=== PATIENT | male | born 1985 | race Caucasian/White ===

== ENCOUNTER 2020-02-18 12:12 | Emergency (ER) | payer SELFPAY ==
--- OUTSIDE RECORDS SUMMARY | 2020-02-18 12:36 | XMS REPORT | Continuity of Care Document ---
:1985 Author Organization [facility] t Address [address] [place] [address] Care Team Providers Name Role Phone Provider, Urgent Care Attending Clinician Unavailable Problems This patient has no known problems. Allergies, Adverse Reactions, Alerts This patient has no known allergies or adverse reactions. Medications This patient has no known medications. Procedures This patient has no known procedures. Encounters Start End Encounter Admission Attending Care Care Encounter Source Date/Time Date/Time Type Type Clinicians Facility Department ID 2019-12-05 2019-12-05 Urgent Provider, [facility] [id number] 16:23:05 16:56:49 Care [facility] [id number] [facility] [place] [facility] [id number] Kamari [phone] [address] Results This patient has no known results.
--- OUTSIDE RECORDS SUMMARY | 2020-02-18 12:36 | XMS REPORT | Summary of Care ---
:1985 Author Organization [facility] Address [address] [place] [id number] Care Team Providers Name Role Phone Pcp, Patient Does Not Have A Primary Care Provider +[id number] 0-0000 Reason for Visit Reason Comments Rash patient states he was cuttin g grass and rash has been present for 3 days Encounter Details Date Type Department Care Team Description 12/05/2019 Urgent Care [facility] Family Emy Champion, ELLIE [address] [place] [address] [address] [phone] Rash (Primary Dx) Medicine - [place] Provider, [facility] [address] [place] [address] [place] [address] Allergies No Known Allergiesdocumented as of this encounter (statuses as of 12/06/2019) Medications Hospital, Clinic, or Other Ordered Dose Route Frequency Start Date End Date Status Facility Administered Medication methylPREDNISolone acetate 80 mg IM ONCE 12/05/2019 Ended (DEPO-MEDROL) injection 80 mgIndications: Rash documented as of this encounter (statuses as of 12/06/2019) Active Problems Problem Noted Date Genital herpes 05/12/2016 Hypercholesterolemia 05/12/2016 documented as of this encounter (statuses as of 12/06/2019) Resolved Problems Problem Noted Date Resolved Date Elevated blood pressure 04/12/2016 05/12/2016 History of drug use 04/12/2016 05/12/2016 History of alcohol use 04/12/2016 05/12/2016 documented as of this encounter (statuses as of 12/06/2019) Social History Tobacco Use Types Packs/Day Years Used Date Former Smoker Smokeless Tobacco: Former User Comments: Smoked age 18yo-21yo intermitt ently; Used snuff x about 3 mos in the past Alcohol Use Drinks/Week oz/Week Comments No 0 Standard drinks or equivalent 0.0 Quit EtOH in 2013 Sex Assigned at Date Recorded Not on file COVID-19 Exposure Response Date Recorded In the last month, have you been in contact with No / Unsure 12/05/2019 4:26 PM CDT someone who was confirmed or suspected to have Coronavirus / COVID-19? documented as of this encounter Last Filed Vital Signs Vital Sign Reading Time Taken Comments Blood Pressure 137/79 12/05/2019 4:27 PM CDT Pulse 62 12/05/2019 4:27 PM CDT Temperature 36.7 C (98 F) 12/05/2019 4:27 PM CDT Respiratory Rate 18 12/05/2019 4:27 PM CDT Oxygen Saturation 98% 12/05/2019 4:27 PM CDT Inhaled Oxygen Concentration - - Weight 66.7 kg (147 lb) 12/05/2019 4:27 PM CDT Height 175.3 cm (5' 9") 12/05/2019 4:27 PM CDT Body Mass Index 21.71 12/05/2019 4:27 PM CDT documented in this encounter Patient Instructions Patient InstructionsMaggie Hurtado PA - 12/05/2019 4:20 PM CDT Patient Education Poison Arin Rash You have a rash and itching. This is a delayed reaction to the oils of the poison arin plant. You likely came in contact with it during the 3 days before your symptoms started. Your skin will become redand itchy. Small blisters may appear. These can break and leak a clear yellow fluid. This fluid is not contagious. The reaction usually starts to go away after 1 to 2 weeks. But it may take 4 to 6 weeks to fully clear. Home care Follow these guidelines when caring for yourself at home: The plant oils still on your skin or clothes can be spread to other places on your body. They canalso be passed on to other people and cause a similar reaction. Thats why its important to wash all of the plant oils off your skin and any clothes that may have been exposed.Wash all clothes that you were wearing. Use hot water with ordinary laundry detergent. Dogs and cats that have been in poison arin may not get a rash, but the oil may be on their fur. Be sure to wash your pets, too. Don't use jwxs-urm-sxnnfnj antibiotic creams such as neomycin or bacitracin. These may make the rash worse. Stay away fromanything that heats up your skin. This includes hot showers or baths, or direct sunlight. These can make itching worse. Put a cold compress on areas that are leaking (weeping), or on blistered areas. Do this for 30 minutes 3 times a day. To make a cold compress, dip a wash cloth in a mixture of 1 pint of cold water and 1 packet of astringent or oatmeal bath powder. Keep the solution in the refrigerator for future use. If large areas of skin are affected, take a lukewarm bath. Add colloidal oatmeal, or 1 cup of cornstarch or baking soda to the water. For a rash in a smaller area, use hydrocortisone cream for redness and irritation. But dont use this if another medicine was prescribed. For severe itching, put an ice pack on the area. To make an ice pack, put ice cubes in a plasticbag that seals at the top. Wrap the bag in aclean, thintowel or cloth. Never put ice or an ice pack directly on the skin. Nmzc-wws-otoipaa products that have calamine lotion may also be helpful. You can also use an oral antihistamine medicine with diphenhydramine for itching, unless another medicine was prescribed. This medicine may make you sleepy. So use lower doses during the daytime andhigher doses at bedtime. Dont use medicine that has diphenhydramine if you have glaucoma. Also dont use it if you are a man who has trouble urinating because of an enlarged prostate. Antihistamines with loratidine cause less drowsiness. They are a good choice for daytime use. For severe cases, your provider may prescribe oral steroid medicines. Always take these exactly as prescribed. Follow-up care Follow up with your healthcare provider, or as directed. Call your provider if your rash gets worse oryou are not starting to get better after 1 week of treatment. When to seek medical advice Call your healthcare provider or seek medical attention right awayif any of these occur: Spreading facial rash with swollen mouth or eyelids Rash that spreads to the groin and causes swelling of the penis, scrotum, or vaginal area Trouble urinating because of swelling in the genital area Also call your provider if you have signs of infection in the areas of broken blisters: Spreading redness Pus or fluid draining from the blisters Yellow-brown crusts form over the open blisters Fever of 100.4F (38.0C), or as directed by your provider Call 911 Call 911 if you have trouble breathing or swallowing. Or if you have severe swelling on your face, eyelids, mouth, throat, or tongue. [employer] last reviewed this educational content on 11/29/201819994117-0019 [employer]. [address] [place] [address], [place] [address]. All rights reserved. This information is not intended as a substitute for professional medical care. Always follow your healthcare professional's instructions. documented in this encounter Progress Notes Maggie Hurtado PA - 12/05/2019 4:20 PM CDT Cc: Chief Complaint Patient presents with Rash patient states he was cutting grass and rash has been present for 3 days Jero Jama is a 34 year old male. Rash Location: b/l UE and abdomen. Duration: 3 days Timing: Constant Progression: Unchanged Chronicity: New Context: plant contact (poison arin) Context: not animal contact, not chemical exposure, not diapers, not eggs, not exposure to similar rash, not food, not hot tub use, not insect bite/sting, not medications, not new detergent/soap, not nuts, not pollen, not , not sick contacts and not sun exposure Worsened by: Nothing Ineffective treatments: calamine lotion, benadryl. Associated symptoms: no abdominal pain, no diarrhea, no fatigue, no fever, no headaches, no hoarse voice, no induration, no joint pain, no myalgias, no nausea, no periorbital edema, no shortness of breath, no sore throat, no throat swelling, no tongue swelling, no URI, not vomiting and not wheezing Allergies Jero has No Known Allergies. Medications No outpatient medications prior to visit. No facility-administered medications prior to visit. Histories Past Medical History: Diagnosis Date Genital herpes Hypercholesterolemia 05/12/2016 Past Surgical History: Procedure Laterality Date FOREARM/WRIST SURGERY UNLISTED Right Social History Socioeconomic History Marital status: Single Spouse name: Not on file Number of children: Not on file Years of education: Not on file Highest education level: Not on file Occupational History Not on file Social Needs Financial resource strain: Not on file Food insecurity Worry: Not on file Inability: Not on file Transportation needs Medical: Not on file Non-medical: Not on file Tobacco Use Smoking status: Former Smoker Smokeless tobacco: Former User Tobacco comment: Smoked age 18yo-21yo intermittently; Used snuff x about 3 mos in the past Substance and Sexual Activity Alcohol use: No Alcohol/week: 0.0 standard drinks Comment: Quit EtOH in 2013 Drug use: No Comment: Last used drugs 09/2015, used to use marijuana; 2011 abused prescription drugs (Soma, Lorcet) Sexual activity: Not Currently Lifestyle Physical activity Days per week: Not on file Minutes per session: Not on file Stress: Not on file Relationships Social connections Talks on phone: Not on file Gets together: Not on file Attends roman catholic service: Not on file Active member of club or organization: Not on file Attends meetings of clubs or organizations: Not on file Relationship status: Not on file Intimate partner violence Fear of current or ex partner: Not on file Emotionally abused: Not on file Physically abused: Not on file Forced sexual activity: Not on file Other Topics Concern Not on file Social History Narrative Lives at home with mom and stepdad Family History Problem Relation Age of Onset No Significant Medical Problems Mother Diabetes Father No Significant Medical Problems Sister No Significant Medical Problems Brother Stroke Maternal Grandmother Review of Systems Constitutional: Negative for activity change, appetite change, chills, diaphoresis, fatigue and fever. HENT: Negative for congestion, dental problem, drooling, ear pain, facial swelling, hoarse voice, mouth sores, postnasal drip, rhinorrhea, sinus pressure, sneezing, sore throat, trouble swallowing and voice change. Eyes: Negative for pain, discharge, redness and itching. Respiratory: Negative for apnea, cough, choking, chest tightness, shortness of breath, wheezing and stridor. Cardiovascular: Negative for chest pain, palpitations and leg swelling. Gastrointestinal: Negative for abdominal pain, diarrhea, nausea and vomiting. Musculoskeletal: Negative for arthralgias, back pain, gait problem, joint swelling and myalgias. Skin: Positive for rash. Negative for pallor and wound. Neurological: Negative for headaches. Vital Signs BP 137/79 | Pulse 62 | Temp 36.7 C (98 F) (Oral) | Resp 18 | Ht 5' 9" (1.753 m) | Wt 147 lb(66.7 kg) | SpO2 98% | BMI 21.71 kg/m Physical Exam Vitals signs and nursing note reviewed. Constitutional: General: He is not in acute distress. Appearance: He is well-developed. He is not ill-appearing, toxic-appearing or diaphoretic. HENT: Head: Normocephalic and atraumatic. Right Ear: External ear normal. Left Ear: External ear normal. Nose: Nose normal. Mouth/Throat: Pharynx: Oropharynx is clear. Eyes: Conjunctiva/sclera: Conjunctivae normal. Neck: Musculoskeletal: Neck supple. Cardiovascular: Rate and Rhythm: Normal rate and regular rhythm. Heart sounds: Normal heart sounds. Pulmonary: Effort: Pulmonary effort is normal. Breath sounds: Normal breath sounds. Abdominal: General: Bowel sounds are normal. There is no distension. Palpations: Abdomen is soft. Tenderness: There is no abdominal tenderness. Musculoskeletal: Normal range of motion. Lymphadenopathy: Cervical: No cervical adenopathy. Skin: General: Skin is warm and dry. Findings: Rash present. Rash is papular (scattered pink papular rash on b/l UE and anterior torso. No interdigital lesions or burrows. No pusutles, vescles. No drainage, warmth, swelling, induration). Neurological: Mental Status: He is alert and oriented to person, place, and time. Psychiatric: Behavior: Behavior normal. Assessment/Plan Rash (primary encounter diagnosis) Plan: methylPREDNISolone acetate (DEPO-MEDROL) injection 80 mg Well appearing, NAD. No facial/oral involvement. No oropharyngeal edema. No respiratory distress. Nodysphagia, stridor or drooling. Rash that began after contact with poison arin. Likely contact dermatitis. Given extent of rash and no improvement with topical therapy, will give depo medrol injection. Educated on depo medrol including admin, use, side effects/complications. Patient reports understanding and agrees. Recommend the following at home care: May continue calamine lotion or otc cortisone as needed, thin layer for shortest duration possible Take OTC claritin, horacio, zyrtec w/o D as needed Take famotidine BID as needed Keep clean Cold compress as needed for itching Avoid hot showers, recommend warm Use unscented, sensitive skin soap such as dove. Avoid scratching Wash clothes/sheets/towels Pt ed/precautions given in detail regarding conditions/medicaitons. Er precautions given. Pt reportsunderstanding and agrees. rtc if s/s worsen or do not improve; Plan of care, desired health behaviors, goals, Ddx, & any prescribed or OTC medications discussed with patient. Education resources & self management tools provided and reviewed with AVS. Patient/guardian/family verbalized understanding & agrees to plan of care. Barriers to care: NONE Ability to manage care: Good This visit did not involve counseling and coordination that comprised more than 50% of the visit time. documented in this encounter Plan of Treatment Health Maintenance Due Date Last Done Comments VARICELLA VACCINES (1 of 2 - 1986 2-dose childhood series) Depression Screening 1997 DTaP,Tdap,and Td Vaccines (1 - 2004 Tdap) INFLUENZA VACCINE (#1) 2019 PNEUMOCOCCAL 0-64 YEARS COMBINED Aged Out No longer eligible based on SERIES patient's age to complete this topic documented as of this encounter Results Not on filedocumented in this encounter Visit Diagnoses Diagnosis Rash - Primary Rash and other nonspecific skin eruption documented in this encounter Administered Medications Medication Order MAR Action Action Date Dose Rate Site methylPREDNISolone acetate Given 12/05/2019 4:58 80 mg Right (DEPO-MEDROL) injection 80 mg PM CDT Dorsogluteal-IM 80 mg, Intramuscular, ONCE, 1 dose, [facility] 12/05/19 at 1745, Routine documented in this encounter
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
--- NOTE | 2020-02-18 14:06 | ER ---
Nurse's Notes [facility] Name: Jero Jama Age: 34 yrs Sex: Male : 1985 Arrival Date: 02/18/2020 Time: 12:16 Bed 15 Private MD: Diagnosis: Displaced fracture of neck of fourth metacarpal bone, right hand;Displaced fracture of base of fifth metacarpal bone, right hand Presentation: 02/17 12:33 Chief complaint: Patient states: Right hand pain and swelling, punched a window ll1 multiple times last night. Coronavirus screen: Client denies travel out of the [place] in the last 14 days. At this time, the client does not indicate any symptoms associated with coronavirus-19. Ebola Screen: Patient denies travel to an Ebola-affected area in the 21 days before illness onset. Initial Sepsis Screen: Does the patient meet any 2 criteria? No. Patient's initial sepsis screen is negative. Does the patient have a suspected source of infection? Yes: Bone or joint infection. Risk Assessment: Do you want to hurt yourself or someone else? Patient reports no desire to harm self or others. Onset of symptoms was February 17, 2020. 12:33 Method Of Arrival: Ambulatory ll1 12:33 Acuity: NAA 4 ll1 Historical: - Allergies: 12:36 No Known Allergies; ll1 - PSHx: 12:36 None; ll1 - Immunization history:: Flu vaccine is not up to date. - Social history:: Smoking status: Patient reports the use of cigarette tobacco products, smokes one pack cigarettes per day. Screenin:54 Abuse screen: Denies threats or abuse. Denies injuries from another. Nutritional ss screening: No deficits noted. Tuberculosis screening: Never had TB. Fall Risk None identified. Assessment: 13:30 General: Appears in no apparent distress. comfortable, Behavior is cooperative, Pt is ss talkative. . Pain: Complains of pain in right hand Pain currently is 10 out of 10 on a pain scale. Quality of pain is described as tender, throbbing. Neuro: Level of Consciousness is awake, alert, obeys commands, Oriented to person, place, time, situation. Cardiovascular: Pulses are palpable in right radial artery and left radial artery. Respiratory: Respiratory effort is even, unlabored. GI: Patient currently denies diarrhea, nausea, vomiting. EENT: Nares are clear. Derm: Bruising that is on right hand. Musculoskeletal: Circulation, motion, and sensation intact. Range of motion: intact in all extremities, Swelling present in right hand. Vital Signs: 12:33 Pulse 89; Resp 17; Temp 98.9; Pulse Ox 99% ; Weight 63.5 kg; Height 5 ft. 8 in. (172.72 ll1 cm); Pain 10/10; 12:36 BP 119 / 69; ll1 12:33 Body Mass Index 21.29 (63.50 kg, 172.72 cm) ll1 ED Course: 12:16 Patient arrived in ED. mr 12:17 Andreea Norman FNP-C [facility]. snw 12:17 Christofer Fortune MD is Attending Physician. snw 12:35 Triage completed. ll1 12:36 Arm band placed on. ll1 13:54 Nancy Mendez, RN is Primary Nurse. ss 13:54 Patient has correct armband on for positive identification. Bed in low position. Call ss light in reach. 13:54 No provider procedures requiring assistance completed. Patient did not have IV access ss during this emergency room visit. 13:58 Hand Right 3 View XRAY In Process Unspecified. EDMS Administered Medications: No medications were administered Outcome: 14:05 Discharge ordered by . snw 14:11 Discharged to home ambulatory, with family. ss 14:11 Condition: good 14:11 Discharge instructions given to patient, significant other, Instructed on discharge instructions, follow up and referral plans. Demonstrated understanding of instructions, follow-up care, medications, Prescriptions given X 1. 14:12 Patient left the ED. ss Signatures: Dispatcher [employer] EDMS Andreea Norman FNP-C [employer] Opal Mosqueda mr Nancy Mendez, RN RN ss Zhanna Toney RN RN 1
--- NOTE | 2020-02-18 14:24 | RAD REPORT ---
EXAM DESCRIPTION: RAD - Hand Right 3 View - 02/18/2020 2:18 pm CLINICAL HISTORY: Right hand pain status post injury FINDINGS: Mildly displaced fracture involves fifth metacarpal neck with angulation present at fractu re site. Moderately displaced fracture involves mid fourth metacarpal with overriding fracture fragments and a ngulation present at the fracture site No dislocation
[2020-02-18 15:23] VITALS: TEMP 98.9; O2SAT 99
[2020-02-18 15:25] VITALS: BP 119/69
== END 2020-02-18 14:12 | disposition home or self-care (01) ==
LOC: ER 12:12
PROC: 2W3CX1Z Immobilization of Right Lower Arm using Splint (ICD-10-PCS; principal; 2020-02-18)
DX: S62.334A Displaced fracture of neck of fourth metacarpal bone, right hand, initial encounter for closed fracture (principal); S62.316A Displaced fracture of base of fifth metacarpal bone, right hand, initial encounter for closed fracture; W22.8XXA Striking against or struck by other objects, initial encounter; Y93.9 Activity, unspecified; Y92.89 Other specified places as the place of occurrence of the external cause; F17.210 Nicotine dependence, cigarettes, uncomplicated
CPT/HCPCS: 99283